=== PATIENT | female | born 1945 | race Caucasian/White ===

== ENCOUNTER 2021-09-14 11:50 | Inpatient (IN) | payer OTHER, MEDICARE ==
[~2021-09-14] VITALS: Ht 152.4 cm; Wt 83.9 kg
[2021-09-14 12:30] LABS: BASOPHILS ABSOLUTE AUTO 0.05 K/mm3 (0.00-0.23); BASOPHILS PERCENT AUTO 0 % (0-2); EOSINOPHILS ABSOLUTE AUTO 0.06 K/mm3 (0.00-0.68); EOSINOPHILS PERCENT AUTO 0 % (0-6); Hematocrit 36.8 % (33.0-51.0); Hemoglobin 11.3 g/dL (11.5-16.0); IMMATURE GRAN ABSOLUTE AUTO 0.22 K/mm3 (0.00-0.10); IMMATURE GRAN PERCENT AUTO 1 % (0-1); LYMPHOCYTES ABSOLUTE AUTO 1.58 K/mm3 (0.84-5.20); LYMPHOCYTES PERCENT AUTO 10 % (21-46); MONOCYTES ABSOLUTE AUTO 0.64 K/mm3 (0.16-1.47); MONOCYTES PERCENT AUTO 4 % (4-13); Mean Corpuscular HGB 28.2 pg (26.0-34.0); Mean Corpuscular HGB Conc 30.7 g/dL (31.5-36.5); Mean Corpuscular Volume 92 fL (80-100); Mean Platelet Volume 9.2 fL (9.1-12.4); NEUTROPHILS ABSOLUTE AUTO 12.84 K/mm3 (1.96-9.15); NEUTROPHILS PERCENT AUTO 83 % (41-73); Platelet Count 261 K/mm3 (150-400); RDW Coefficient Variation 14.7 % (11.7-14.2); RDW Standard Deviation 49.4 fL (35.1-46.3); Red Blood Cell Count 4.01 M/mm3 (3.80-5.20); White Blood Cell Count 15.39 K/mm3 (4.00-11.30)
[2021-09-14 12:46] LABS: Alanine Aminotransfer (ALT/SGP 51 U/L (12-78); Albumin, Blood 2.8 g/dL (3.4-5.0); Albumin/Globulin Ratio 0.8 (0.8-1.8); Alk Phos 111 U/L (50-136); Anion Gap 12 mmol/L (6-16); Aspartate Aminotrans (AST/SGOT 52 U/L (12-37); Beta HCG, Quantitative, Serum 3 mIU/mL (0-3); Bilirubin, Total 0.3 mg/dL (0.1-1.0); Blood Urea Nitrogen 17 mg/dL (8-24); Bun/Creatinine Ratio 13.8 (12.0-20.0); CO2, Blood 18 mmol/L (21-32); Calcium, Blood 9.2 mg/dL (8.5-10.1); Chloride, Blood 112 mmol/L (98-108); Creatinine, Blood 1.23 mg/dL (0.40-1.00); Ethanol (Alcohol), Blood, Med <3 mg/dL; Globulin, Blood 3.4 g/dL (2.2-4.0); Glomerular Filtration Rate 43 (60-); Glucose, Blood 176 mg/dL (70-99); Potassium, Blood 3.3 mmol/L (3.5-5.5); Sodium, Blood 142 mmol/L (136-145); Total Protein, Blood 6.2 g/dL (6.4-8.2)
[2021-09-14 12:54] LABS: International Normalized Ratio 2.37; Prothrombin Time Results 23.5 Sec (9.7-11.5)
[2021-09-14 13:28] LABS: Source, Urine Catheter
[2021-09-14 14:00] LABS: Bilirubin, Urine Neg (Neg); Blood, Urine 4+ (Neg); Glucose Qualitative, Urine Neg (Neg); Ketones, Urine Neg (Neg); Leukocyte Esterase, Urine 2+ (Neg); Nitrite, Urine Neg (Neg); Protein, Urine Neg (Neg); Urobilinogen, Urine NORM (Normal)
[2021-09-14 15:04] LABS: Appearance, Urine Clear (Clear); Color, Urine Pale Yellow (P-Yellow)
[2021-09-14 15:06] LABS: Amorphous Light (0-Heavy); Bacteria Mod /hpf; Squamous Epithelial Cells Few /hpf (Few)
[2021-09-14 15:07] LABS: RBC Cast 0-2 /lpf (0); WBC Cast 0-2 /lpf (0)
[2021-09-14 15:15] LABS: Influenza A, PCR NEGATIVE (NEGATIVE); Influenza B, PCR NEGATIVE (NEGATIVE); Resp Syncytial Virus, PCR NEGATIVE (NEGATIVE); SARS-Cov-2 (COVID-19) PCR, MMC NEGATIVE (NEGATIVE)
[2021-09-14] MEDS ORDERED: Coq-1030 MG PO (15:30)
[2021-09-14] MEDS ORDERED: HYDCOR10 PO (15:30)
[2021-09-14] MEDS ORDERED: FOLIC ACID PO (15:32)
[2021-09-14] MEDS ORDERED: HYDMOR2 PO (15:33)
[2021-09-14] MEDS ORDERED: LIOT5 PO (15:34)
[2021-09-14] MEDS ORDERED: LOSA50 PO (15:35)
[2021-09-14] MEDS ORDERED: LEVSOD25 PO (15:35)
[2021-09-14] MEDS ORDERED: PSYLLIUM FIBER0.4 GM PO (15:36)
[2021-09-14] MEDS ORDERED: L-Lysine500 M1 PO (15:36)
[2021-09-14] MEDS ORDERED: Hytrin2 MG PO (15:37)
[2021-09-14] MEDS ORDERED: B-121000 MC3 PO (15:38)
[2021-09-14] MEDS ORDERED: VERA120 PO (15:38)
[2021-09-14] MEDS ORDERED: VITAMIN D325 MC3 PO (15:39)
[2021-09-14] MEDS ORDERED: WARF2.5 PO (15:40)
[2021-09-14] MEDS ORDERED: WARF5 PO (15:41)
[2021-09-14] MEDS ORDERED: ALBU90OI INH (15:41)
[2021-09-14] MEDS ORDERED: ONDA4ODT MM (15:42)
[2021-09-14] MEDS ORDERED: ESTRADIOL42.5 GM VAG (15:43)
--- NOTE | 2021-09-14 15:55 | NUR ---
APPROX 1340: REQUESTED STANDBY FOR CON SEDATION. PT WAS ON 4LPM PRIOR TO START OF PROCEDURE. SPO2 @ 98%. PT STATED NO SIGNIFICANT RESP HISTORY TO THIS RT. DURING PROCEDURE- PT DESAT AND O2 WAS INCREASED UP TO 12LPM NC AND THEN PLACED ON NRB AT 15LPM TO MAINTAIN SATS > 92% AND SATS REMAINED 100% FOR MOST OF PROCEDURE. POST PROCEDURE- OXYGEN WAS WEANED BACK TO 4LPM WHILE RECOVERING PHASE AND PT AWAKENING. RN AT BEDSIDE T/O. RT EXCUSED TO NURSING CARE. PT IN NO RESP DISTRESS.
[2021-09-14 16:55] LABS: U Amphetamine Screen Not Detected; U Barbituate Screen Not Detected; U Benzodiazapine Screen Not Detected; U Buprenorphine Screen Not Detected; U Cannabinoids Screen Not Detected; U Cocaine Screen Not Detected; U Methadone Screen Not Detected; U Methamphetamine Screen Not Detected; U Opiates Screen Not Detected; U Oxycodone Screen Not Detected; U Phencyclidine Screen Not Detected; U Propoxyphene Screen Not Detected
--- NOTE | 2021-09-15 03:39 | NUR ---
SHIFT SUMMARY PT ARRIVED BACK TO THE FLOOR AT APPROX 2145 FROM I&D OF L ANKLE. MAYTE WRAP IN PLACE, C/D/I. VSS. BEEN RESTING COMFORTABLY THROUGHOUT THE NIGHT. NO N/V. BEEN TREATED FOR PAIN PER EMAR. CRENSHAW IN PLACE, DRAINING CLEAR YELLOW URINE. WILL REPORT TO ONCOMING RN.
[2021-09-15 03:57] LABS: BASOPHILS ABSOLUTE AUTO 0.02 K/mm3 (0.00-0.23); BASOPHILS PERCENT AUTO 0 % (0-2); EOSINOPHILS PERCENT AUTO 0 % (0-6); Hematocrit 29.8 % (33.0-51.0); Hemoglobin 9.6 g/dL (11.5-16.0); IMMATURE GRAN ABSOLUTE AUTO 0.07 K/mm3 (0.00-0.10); IMMATURE GRAN PERCENT AUTO 1 % (0-1); LYMPHOCYTES ABSOLUTE AUTO 0.38 K/mm3 (0.84-5.20); LYMPHOCYTES PERCENT AUTO 3 % (21-46); MONOCYTES ABSOLUTE AUTO 0.52 K/mm3 (0.16-1.47); MONOCYTES PERCENT AUTO 4 % (4-13); Mean Corpuscular HGB 28.8 pg (26.0-34.0); Mean Corpuscular HGB Conc 32.2 g/dL (31.5-36.5); Mean Corpuscular Volume 90 fL (80-100); Mean Platelet Volume 8.9 fL (9.1-12.4); NEUTROPHILS ABSOLUTE AUTO 13.63 K/mm3 (1.96-9.15); NEUTROPHILS PERCENT AUTO 93 % (41-73); Platelet Count 211 K/mm3 (150-400); RDW Coefficient Variation 14.6 % (11.7-14.2); RDW Standard Deviation 47.9 fL (35.1-46.3); Red Blood Cell Count 3.33 M/mm3 (3.80-5.20); White Blood Cell Count 14.62 K/mm3 (4.00-11.30)
[2021-09-15 04:10] LABS: International Normalized Ratio 2.65; Prothrombin Time Results 26.1 Sec (9.7-11.5)
[2021-09-15 04:14] LABS: Albumin, Blood 2.5 g/dL (3.4-5.0); Albumin/Globulin Ratio 0.8 (0.8-1.8); Bilirubin, Total 0.4 mg/dL (0.1-1.0); Bun/Creatinine Ratio 16.5 (12.0-20.0); Calcium, Blood 8.4 mg/dL (8.5-10.1); Creatinine, Blood 1.15 mg/dL (0.40-1.00); Globulin, Blood 3.1 g/dL (2.2-4.0); Magnesium, Blood 1.8 mg/dL (1.6-2.4); Potassium, Blood 4.1 mmol/L (3.5-5.5); Total Protein, Blood 5.6 g/dL (6.4-8.2)
[2021-09-15] MEDS ORDERED: TOPI25 PO (22:00)
[2021-09-15] MEDS ORDERED: LIOT5 PO (22:04)
--- NOTE | 2021-09-16 03:56 | NUR ---
SHIFT SUMMARY POD1 I&D OF L ANKLE, MAYTE WRAP IN PLACE, C/D/I. VSS, 3L NC. PAIN BEING MANAGED PER EMAR WITH 0.5MG IV DILAUDID Q2H. BEDREST AT THIS TIME. TOLERATING PO INTAKE. CRENSHAW DRAINING TO GRAVITY, CLEAR YELLOW URINE. WILL REPORT TO ONCOMING RN.
[2021-09-16 05:11] LABS: BASOPHILS ABSOLUTE AUTO 0.01 K/mm3 (0.00-0.23); BASOPHILS PERCENT AUTO 0 % (0-2); EOSINOPHILS ABSOLUTE AUTO 0.01 K/mm3 (0.00-0.68); EOSINOPHILS PERCENT AUTO 0 % (0-6); Hemoglobin 8.1 g/dL (11.5-16.0); IMMATURE GRAN ABSOLUTE AUTO 0.11 K/mm3 (0.00-0.10); IMMATURE GRAN PERCENT AUTO 1 % (0-1); LYMPHOCYTES ABSOLUTE AUTO 1.05 K/mm3 (0.84-5.20); LYMPHOCYTES PERCENT AUTO 8 % (21-46); MONOCYTES ABSOLUTE AUTO 1.25 K/mm3 (0.16-1.47); MONOCYTES PERCENT AUTO 10 % (4-13); Mean Corpuscular HGB 29.1 pg (26.0-34.0); Mean Corpuscular HGB Conc 32.4 g/dL (31.5-36.5); Mean Corpuscular Volume 90 fL (80-100); Mean Platelet Volume 9.6 fL (9.1-12.4); NEUTROPHILS ABSOLUTE AUTO 10.55 K/mm3 (1.96-9.15); NEUTROPHILS PERCENT AUTO 81 % (41-73); Platelet Count 206 K/mm3 (150-400); RDW Coefficient Variation 14.7 % (11.7-14.2); RDW Standard Deviation 48.1 fL (35.1-46.3); Red Blood Cell Count 2.78 M/mm3 (3.80-5.20); White Blood Cell Count 12.98 K/mm3 (4.00-11.30)
[2021-09-16 05:58] LABS: Albumin, Blood 2.2 g/dL (3.4-5.0); Anion Gap 8 mmol/L (6-16); Blood Urea Nitrogen 21 mg/dL (8-24); Bun/Creatinine Ratio 18.1 (12.0-20.0); CO2, Blood 21 mmol/L (21-32); Calcium, Blood 7.8 mg/dL (8.5-10.1); Chloride, Blood 113 mmol/L (98-108); Creatinine, Blood 1.16 mg/dL (0.40-1.00); Glomerular Filtration Rate 45 (60-); Glucose, Blood 87 mg/dL (70-99); Phosphorus, Blood 2.2 mg/dL (2.5-4.9); Potassium, Blood 3.3 mmol/L (3.5-5.5); Sodium, Blood 142 mmol/L (136-145)
[2021-09-16 08:36] LABS: Hematocrit 26.1 % (33.0-51.0); Hemoglobin 8.4 g/dL (11.5-16.0)
[2021-09-16 08:49] LABS: International Normalized Ratio 1.8; Prothrombin Time Results 18.2 Sec (9.7-11.5)
[2021-09-16 16:11] LABS: Hematocrit 25.8 % (33.0-51.0); Hemoglobin 8.3 g/dL (11.5-16.0)
--- NOTE | 2021-09-16 18:21 | NUR ---
Heparin gtt started as per order. Instructed, per Dr. Serrano to stop Heparin gtt 09/17 at 0600 a.m. , pharmacy notified.
[2021-09-17 00:24] LABS: Hematocrit 25.8 % (33.0-51.0); Hemoglobin 8.4 g/dL (11.5-16.0)
[2021-09-17 05:02] LABS: BASOPHILS ABSOLUTE AUTO 0.02 K/mm3 (0.00-0.23); BASOPHILS PERCENT AUTO 0 % (0-2); EOSINOPHILS ABSOLUTE AUTO 0.06 K/mm3 (0.00-0.68); EOSINOPHILS PERCENT AUTO 1 % (0-6); Hematocrit 24.4 % (33.0-51.0); Hemoglobin 7.8 g/dL (11.5-16.0); IMMATURE GRAN ABSOLUTE AUTO 0.11 K/mm3 (0.00-0.10); IMMATURE GRAN PERCENT AUTO 1 % (0-1); LYMPHOCYTES PERCENT AUTO 10 % (21-46); MONOCYTES ABSOLUTE AUTO 1.06 K/mm3 (0.16-1.47); MONOCYTES PERCENT AUTO 9 % (4-13); Mean Corpuscular HGB 28.8 pg (26.0-34.0); Mean Corpuscular Volume 90 fL (80-100); Mean Platelet Volume 9.3 fL (9.1-12.4); NEUTROPHILS ABSOLUTE AUTO 9.22 K/mm3 (1.96-9.15); NEUTROPHILS PERCENT AUTO 80 % (41-73); Platelet Count 178 K/mm3 (150-400); RDW Coefficient Variation 14.8 % (11.7-14.2); RDW Standard Deviation 48.9 fL (35.1-46.3); Red Blood Cell Count 2.71 M/mm3 (3.80-5.20); White Blood Cell Count 11.57 K/mm3 (4.00-11.30)
[2021-09-17 06:16] LABS: Albumin, Blood 2.1 g/dL (3.4-5.0); Anion Gap 6 mmol/L (6-16); Blood Urea Nitrogen 18 mg/dL (8-24); Bun/Creatinine Ratio 19.8 (12.0-20.0); CO2, Blood 20 mmol/L (21-32); Calcium, Blood 7.2 mg/dL (8.5-10.1); Chloride, Blood 117 mmol/L (98-108); Creatinine, Blood 0.91 mg/dL (0.40-1.00); Glomerular Filtration Rate >60 (60-); Glucose, Blood 105 mg/dL (70-99); Magnesium, Blood 2.1 mg/dL (1.6-2.4); Phosphorus, Blood 2.4 mg/dL (2.5-4.9); Potassium, Blood 3.6 mmol/L (3.5-5.5); Sodium, Blood 143 mmol/L (136-145)
--- NOTE | 2021-09-17 06:21 | NUR ---
HEPARIN DRIP DRIP STOPPED AT 0608 PER RN REPORT FOR SURGERY TODAY, NORMAL SALINE STILL RUNNING
--- NOTE | 2021-09-17 06:54 | NUR ---
SHIFT SUMMARY OR IN THE MORNING, A/O X4, VSS, PAIN MANAGEMENT IMPROVED (SEE EMAR), HEPARIN DRIP STOPPED AT 0608, PT REPORTS INCREASING PAIN IN R WRIST BUT NOT BAD PAIN IN RIBS. NO ACUTE EVENTS THIS SHIFT. CALL LIGHT IN REACH, WILL CTM AND REPORT TO DAY RN.
[2021-09-17 08:52] LABS: Hematocrit 24.3 % (33.0-51.0); Hemoglobin 7.8 g/dL (11.5-16.0)
--- NOTE | 2021-09-17 13:09 | NUR ---
THE PATIENT WAS BROUGHT TO DAY SURGERY FOR HER PROCEDURE, IN HER BED.
[2021-09-17 18:10] LABS: Hematocrit 20.8 % (33.0-51.0); Hemoglobin 6.7 g/dL (11.5-16.0)
--- NOTE | 2021-09-17 18:33 | NUR ---
SHIFT SUMMARY S/P ORIF L ANKLE, SPLINT, TOES WARM, CAP REFILL WNL. PT HAS BEEN SLEEPING COMFORTABLY SINCE RETURN FROM PACU. BIOX ON, VSS WNL, 4LNC. CRENSHAW PATENT & DRAINING YELLOW URINE, STAT LOCK ON, OFF FLOOR. DAUGHTER AT BEDSIDE. WILL REPORT TO ONCOMING NOC RN.
[2021-09-17 20:54] LABS: Hematocrit 21.9 % (33.0-51.0)
[2021-09-18 05:54] LABS: Hemoglobin 7.5 g/dL (11.5-16.0)
[2021-09-18 06:40] LABS: Albumin, Blood 1.8 g/dL (3.4-5.0); Anion Gap 8 mmol/L (6-16); Blood Urea Nitrogen 18 mg/dL (8-24); Bun/Creatinine Ratio 18.1 (12.0-20.0); CO2, Blood 21 mmol/L (21-32); Calcium, Blood 7.2 mg/dL (8.5-10.1); Chloride, Blood 113 mmol/L (98-108); Glomerular Filtration Rate 54 (60-); Glucose, Blood 139 mg/dL (70-99); Phosphorus, Blood 2.3 mg/dL (2.5-4.9); Sodium, Blood 142 mmol/L (136-145)
--- NOTE | 2021-09-18 07:28 | NUR ---
SHIFT SUMMARY POD1 L ANKLE ORIF, A/O X4, VSS, TOLERATING PO, PAIN MANAGED PER EMAR, NON AMBULATORY PER ORDER, 1 UNIT PRBC TRANSFUSSED THOUGH HGB ONLY UP TO 7.5 AT MORNING LABS. DISCUSSED HEPARIN DRIP c NETO RN TO DISCUSS c DR RAE. NO ACUTE EVENTS THIS SHIFT. CALL LIGHT IN REACH, REPORT GIVEN TO NETO RN.
[2021-09-18 14:08] LABS: Hematocrit 23.6 % (33.0-51.0); Hemoglobin 7.6 g/dL (11.5-16.0)
--- NOTE | 2021-09-18 14:10 | NUR ---
ELEVATED HR PT'S HR ELEVATED TO 170-180. PT REPORTED INCREASED L SIDE/BACK PAIN AFTER REPOSITIONING AND HR APPEARS TO HAVE INCREASED A RESPONSE TO PAIN. PT'S CHART REVIEWED AND SHE HAD NOT HAD VERAPAMIL R/T BEING NPO PREVIOUSLY. DR. JOYCE CALLED AND ORDERED DOSE OF VERAPAMIL PO. PAIN DECREASED SO DID PT'S HR.
[2021-09-18] MEDS ORDERED: THYROID PO (16:36)
[2021-09-18] MEDS ORDERED: [UNRECOGNIZED DRUG - OTHER] PO (16:41)
--- NOTE | 2021-09-18 17:33 | NUR ---
REPOSITIONING OFFERED PT REPORTED PAIN MEDICATION GIVEN AT 1625 WAS WAS NOT ADEQUATE AND SHE STATED NOT ABLE TO TOLERATE REPOSITIONING.
[2021-09-18 17:56] LABS: Hematocrit 21.1 % (33.0-51.0); Hemoglobin 6.9 g/dL (11.5-16.0)
--- NOTE | 2021-09-18 18:00 | NUR ---
REDNESS/SWELLING TO LFA PT REPORTED INCREASED REDNESS AND SWELLING TO LFA NEAR IV SITE. IV WAS ASSESSED, ABLE TO FLUSH WITHOUT INCREASED SWELLING, GOOD BLOOD RETURN. REDNESS AND SWELLING APPEARS TO BE R/T PREVIOUS IV/LAB DRAW SITES. REDNESS OUTLINED. DR. JOYCE NOTIFIED.
--- NOTE | 2021-09-18 19:54 | NUR ---
REPOSITIONING PT WAS OFFERED REPOSITIONING, SHE REPORTED SHE DID NOT FEEL THAT SHE COULD TOLERATE POSITIONING ONTO ONE OF HER SIDES. PT EDUCATED ABOUT RISK FOR SKIN BREAKDOWN.
--- NOTE | 2021-09-18 20:03 | NUR ---
LOW H&H NOC HOSPITALIST JOHNNY, NOTIFIED OF DECREASED H&H FROM PREVIOUS DRAW. HE WAS NOTIFIED THAT HEPARIN DRIP STARTED PRIOR TO LAB DRAW. NO VISIBLE SIGNS OF BLEEDING. 1 UNIT PRBC ORDERED. KRYSTINA RN UPDATED REGARDING PHONE CALL.
--- NOTE | 2021-09-18 20:08 | NUR ---
PT'S HOME MEDICATION LIST REQUIRED UPDATING MANY OF HE HOME MEDICATIONS HAD NOT BEEN ORDERED. DR. JOYCE RESTARTED HOME MEDICATIONS AND SAID OK FOR PT TO USE MEDS FROM HOME INSTEAD OF HOSPITAL MEDICATIONS IF SHE PREFERS.
--- NOTE | 2021-09-18 20:09 | NUR ---
SHIFT SUMMARY PAIN HAS BEEN DIFFICULT TO MANAGED WITH PO AND IV PAIN MEDICATION. PT STATES PAIN IS TOLERABLE AT REST BUT HAS DECLINED REPOSITIONING R/T ELEVATED PAIN WITH MOVEMENT. MANY OF PT'S HOME MEDICATIONS RESTARTED TODAY. HEPARIN DRIP RESTARTED. PT/OT ORDER PLACED TODAY PER DR. JOYCE. PT HAD ELEVATED HR OF 170-180 TODAY, PT'S HR IS NOW NSR AT 88 PER SKID WRAPPER SINCE VERAPAMIL WAS RESTARTED. REPORT GIVEN TO KRYSTINA STEWART.
--- NOTE | 2021-09-19 05:25 | NUR ---
PT IS ALERT AND ORIENTED X4, PAIN TREATED PER EMAR THIS SHIFT. PT DID ALLOW US TO REPOSITION HER TWICE ALONG WITH BOOSTS, OTHER THAN THAT SHE REFUSED. PT GUARDS HER L RIB CAGE AND AND STATES HER L FOOT IS 10/10 PAIN PRIOR TO MEDICATION. L FOOT/LEG DRESSING CDI. PT GAVE THIS COMMERCIAL LOAN COLLECTION OFFICER A COPY OF HER POLST WHICH INDICATES SHE WOULD LIKE TO BE PLACED ON A LIMITED CODE. POLST PLACED IN FRONT OF BONDER AND DAY NURSE WILL BE INFORMED. PT RECEIVED 1U PRBC'S, TOLERATED WELL. FC DRAINING TO GRAVITY. NO OTHER CHANGES THROUGH SHIFT. STAFF WILL CONT TO MONITOR.
[2021-09-19 06:14] LABS: Hematocrit 22.4 % (33.0-51.0); Hemoglobin 7.3 g/dL (11.5-16.0)
[2021-09-19 09:12] LABS: BASOPHILS ABSOLUTE AUTO 0.01 K/mm3 (0.00-0.23); BASOPHILS PERCENT AUTO 0 % (0-2); EOSINOPHILS ABSOLUTE AUTO 0.02 K/mm3 (0.00-0.68); EOSINOPHILS PERCENT AUTO 0 % (0-6); Hematocrit 23.7 % (33.0-51.0); Hemoglobin 7.9 g/dL (11.5-16.0); IMMATURE GRAN PERCENT AUTO 2 % (0-1); LYMPHOCYTES PERCENT AUTO 8 % (21-46); MONOCYTES ABSOLUTE AUTO 0.91 K/mm3 (0.16-1.47); MONOCYTES PERCENT AUTO 8 % (4-13); Mean Corpuscular HGB 28.9 pg (26.0-34.0); Mean Corpuscular HGB Conc 33.3 g/dL (31.5-36.5); Mean Corpuscular Volume 87 fL (80-100); Mean Platelet Volume 9.5 fL (9.1-12.4); NEUTROPHILS ABSOLUTE AUTO 10.01 K/mm3 (1.96-9.15); NEUTROPHILS PERCENT AUTO 82 % (41-73); Platelet Count 217 K/mm3 (150-400); RDW Standard Deviation 47.8 fL (35.1-46.3); Red Blood Cell Count 2.73 M/mm3 (3.80-5.20); White Blood Cell Count 12.15 K/mm3 (4.00-11.30)
[2021-09-19 13:41] LABS: Platelet Count 225 K/mm3 (150-400)
[2021-09-19 13:51] LABS: Hematocrit 23.1 % (33.0-51.0); Hemoglobin 7.7 g/dL (11.5-16.0)
--- NOTE | 2021-09-19 14:43 | NUR ---
PT TO RESTART COUMADIN PER HOME DOSING. PHARMACY CONSULT ORDERED. STAT INR ORDERED.
[2021-09-19 15:14] LABS: International Normalized Ratio 1.13; Prothrombin Time Results 11.8 Sec (9.7-11.5)
--- NOTE | 2021-09-19 18:45 | NUR ---
PT HAS BEEN STABLE THIS SHIFT. PT CONT TO HAVE HIGH RATED PAIN. MANAGED WITH PO/IV DILAUDID. PT REFUSES TO TURN IN BED. ENCOURAGING TCDB AND SPIROMETRY. PT ABLE TO SIT UP BRIEFLY X2 WITH THERAPY. CONT IV FLUIDS AND HEPARIN GGT. PHARMACY MANAGING HEPARIN AND COUMADIN WHICH WAS RESTARTED THIS EVENING. TELE, NSR. PT ON 4L O2. CPAP AT SLEEP. POLST ON CHART PT DESIRES DR TO CHANGE HER TO DNI STATUS. TOLERATING DIET WELL. CRENSHAW DRAINING. SPLINT TO LEFT LEG CDI. PLAN FOR SNF PLACEMENT WHEN READY.
[2021-09-20 04:59] LABS: BASOPHILS ABSOLUTE AUTO 0.02 K/mm3 (0.00-0.23); BASOPHILS PERCENT AUTO 0 % (0-2); EOSINOPHILS ABSOLUTE AUTO 0.08 K/mm3 (0.00-0.68); EOSINOPHILS PERCENT AUTO 1 % (0-6); Hematocrit 21.3 % (33.0-51.0); IMMATURE GRAN ABSOLUTE AUTO 0.25 K/mm3 (0.00-0.10); IMMATURE GRAN PERCENT AUTO 2 % (0-1); LYMPHOCYTES ABSOLUTE AUTO 1.16 K/mm3 (0.84-5.20); LYMPHOCYTES PERCENT AUTO 11 % (21-46); MONOCYTES ABSOLUTE AUTO 0.93 K/mm3 (0.16-1.47); MONOCYTES PERCENT AUTO 9 % (4-13); Mean Corpuscular HGB 29.3 pg (26.0-34.0); Mean Corpuscular HGB Conc 32.9 g/dL (31.5-36.5); Mean Corpuscular Volume 89 fL (80-100); Mean Platelet Volume 9.2 fL (9.1-12.4); NEUTROPHILS ABSOLUTE AUTO 7.97 K/mm3 (1.96-9.15); NEUTROPHILS PERCENT AUTO 77 % (41-73); Platelet Count 233 K/mm3 (150-400); RDW Coefficient Variation 15.1 % (11.7-14.2); RDW Standard Deviation 48.3 fL (35.1-46.3); Red Blood Cell Count 2.39 M/mm3 (3.80-5.20); White Blood Cell Count 10.41 K/mm3 (4.00-11.30)
[2021-09-20 05:10] LABS: International Normalized Ratio 1.1; Prothrombin Time Results 11.5 Sec (9.7-11.5)
[2021-09-20 06:12] LABS: Anion Gap 7 mmol/L (6-16); Blood Urea Nitrogen 19 mg/dL (8-24); Bun/Creatinine Ratio 22.2 (12.0-20.0); CO2, Blood 22 mmol/L (21-32); Calcium, Blood 7.6 mg/dL (8.5-10.1); Chloride, Blood 116 mmol/L (98-108); Creatinine, Blood 0.85 mg/dL (0.40-1.00); Glomerular Filtration Rate >60 (60-); Glucose, Blood 91 mg/dL (70-99); Potassium, Blood 3.6 mmol/L (3.5-5.5); Sodium, Blood 145 mmol/L (136-145)
--- NOTE | 2021-09-20 06:35 | NUR ---
POD 3 S/P LEFT ANKLE ORIF. PT VSS, HR SINUS 80'S PER TELE MONITOR. HEPARIN GTT CONT, RATE ADJUSTED X1 PER PHARMACY. O2 TITRATED TO 2LNC, CPAP ON WHEN SLEEPING W/O2 BLEED IN. PT USING I/S, HAS LOOSE COUGH. PT SPLINT TO LLE INTACT, CAP REFILL WNL, PT DENIED CHANGES IN SENSATION. PAIN MGD PER EMAR. PT ONLY ALLOWING MINIMAL REPOSITIONING. PT USING CALL LIGHT FOR ASSITANCE. PLAN TO MOBILIZE W/PT
--- NOTE | 2021-09-20 18:08 | NUR ---
SHIFT SUMMARY PT A&OX4, VSS/2LNC, POD3 L ORIF ANKLE/SPLINT, NWB, BINDER ON. PAIN MANAGED WITH IV AND PO DILAUDID. FLOYD PO. VOIDING. HEAVY STAND TRANSFER CHAIR/BSC/BED. WILL REPORT TO ONCOMING NOC RN.
[2021-09-20 18:20] LABS: Hematocrit 25.4 % (33.0-51.0); Hemoglobin 8.3 g/dL (11.5-16.0)
--- NOTE | 2021-09-20 22:45 | NUR ---
BLEEDING AFTER USING BEDSIDE COMODE PT EXPERIENCED BLEEDING FROM RECTUM AREA AFTER USING BEDSIDE COMODE, PT STATES HX OF HEMROIDS, PT ASSESSED AND BLEEDING APPEARED TO SUBSIDE QUICKLY. 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 DENIED PAIN OR DISCOMFORT. REPORTED URINATION "FELT NORMAL".
[2021-09-21 04:28] LABS: BASOPHILS ABSOLUTE AUTO 0.02 K/mm3 (0.00-0.23); BASOPHILS PERCENT AUTO 0 % (0-2); EOSINOPHILS ABSOLUTE AUTO 0.23 K/mm3 (0.00-0.68); EOSINOPHILS PERCENT AUTO 2 % (0-6); Hematocrit 22.8 % (33.0-51.0); Hemoglobin 7.5 g/dL (11.5-16.0); IMMATURE GRAN ABSOLUTE AUTO 0.56 K/mm3 (0.00-0.10); IMMATURE GRAN PERCENT AUTO 4 % (0-1); LYMPHOCYTES PERCENT AUTO 16 % (21-46); MONOCYTES ABSOLUTE AUTO 1.07 K/mm3 (0.16-1.47); MONOCYTES PERCENT AUTO 8 % (4-13); Mean Corpuscular HGB 29.4 pg (26.0-34.0); Mean Corpuscular HGB Conc 32.9 g/dL (31.5-36.5); Mean Corpuscular Volume 89 fL (80-100); NEUTROPHILS ABSOLUTE AUTO 9.33 K/mm3 (1.96-9.15); NEUTROPHILS PERCENT AUTO 70 % (41-73); NRBC ABSOLUTE 0.03 K/mm3 (0.00-0.02); NRBC Auto 0.2 /100 WBC (0.0-0.2); Platelet Count 259 K/mm3 (150-400); RDW Coefficient Variation 15.3 % (11.7-14.2); RDW Standard Deviation 49.1 fL (35.1-46.3); Red Blood Cell Count 2.55 M/mm3 (3.80-5.20); White Blood Cell Count 13.31 K/mm3 (4.00-11.30)
[2021-09-21 04:48] LABS: Anti-Xa UFH, PHA Monitoring 0.54 IU/mL; International Normalized Ratio 1.1; Prothrombin Time Results 11.5 Sec (9.7-11.5)
--- NOTE | 2021-09-21 05:17 | NUR ---
PT BLEEDING, DOC CONTACTED DR. MARTE CONTACTED AFTER INCREASED BLOOD W/ URINATION. ORDERED TO REPEAT H&H, STOP HEP DRIP, AND REPORT TO AM DOC.
[2021-09-21 05:33] LABS: Bun/Creatinine Ratio 16.5 (12.0-20.0); Calcium, Blood 7.9 mg/dL (8.5-10.1); Creatinine, Blood 1.09 mg/dL (0.40-1.00); Potassium, Blood 3.2 mmol/L (3.5-5.5)
--- NOTE | 2021-09-21 05:34 | NUR ---
SHIFT SUMMARY PT A&O X4 AND IN PLEASENT MOOD T/O SHIFT. POD 4 ORIF LLE. PT BLEEDING INTO BEDSIDE COMODE DURING SHIFT, SEE NOTE. PT RESTED COMFORTABLY IN CHAIR T/O NIGHT. TOLERATING PO INTAKE AND VOIDING WELL. BINDERS IN PLACE FOR COMFORT FROM MULT. RIB FX. SLING & MAYTE TO LLE, ELEVATED ON PILLOW FOR COMFORT. CALL LIGHT W/IN REACH.
[2021-09-21 09:30] LABS: Hematocrit 22.9 % (33.0-51.0); Hemoglobin 7.4 g/dL (11.5-16.0)
--- NOTE | 2021-09-21 10:04 | NUR ---
09/21/21 1004 Renee Ham VERIFICATIONS: EDIT CHART.
--- NOTE | 2021-09-21 17:51 | NUR ---
SHIFT SUMMARY PT A&OX4, VSS, LLE POD4 ORIF SPLINT NWB, DRESSINGS CHANGED ON RLE/RKNEE LACS. PAIN MANAGED WITH DILAUDID 2 MG PO AND 1 MG IV. FLOYD PO. VOIDING WELL/YELLOW URINE, BM TODAY - NO BLOOD THIS AFTERNOON. HEAVY STAND SWITCH CHAIR TRANSFER. WILL REPORT TO ONCOMING NOC TERRY.
[2021-09-21 18:10] LABS: Hematocrit 26.1 % (33.0-51.0); Hemoglobin 8.4 g/dL (11.5-16.0)
--- NOTE | 2021-09-22 05:00 | NUR ---
ALERT AND ORIENTED X'S 4. MEDICATED WITH DILAUDID PO HS FOR PAIN MANAGEMENT, EFFECTIVE RELIEF. CPAP IN PLACE. SLEPT WELL THROUGH NIGHT. 2 ASISST FOR TRANSFERS, NWB TO LLE, DRESSINGS CLEAN DRY AND INTACT. SAFETY MAINTAINED, CALL LEACH IN REACH.
--- NOTE | 2021-09-22 06:26 | NUR ---
WHEN PREFORMING [facility], BLOOD SHOWED ON THE WIPES. RN ALERTED.
[2021-09-22 06:40] LABS: Anti-Xa UFH, PHA Monitoring 0.56 IU/mL; International Normalized Ratio 1.24; Prothrombin Time Results 12.8 Sec (9.7-11.5)
--- NOTE | 2021-09-22 12:32 | NUR ---
BRB PER VAGINA NOTED BRIGHT RED BLOOD IN PULL UPS AND COMMODE. 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 DR JOYCE AWARE.
--- NOTE | 2021-09-22 14:45 | NUR ---
BRB PER VAGINA BRB PER VAGINA WITH ALL VOIDS THIS SHIFT. NOTIFIED DR JOYCE. ORDERS OBTAINED TO DC HEPARIN DRIP AND CHECK H&H AT 1600. ORDERS ENTERED IN CHART. HEPARIN INFUSION STOPPED AT THIS TIME.
--- NOTE | 2021-09-22 15:04 | NUR ---
SHIFT SUMMARY PATIENT ALERT AND ORIENTED THROUGHOUT SHIFT. TOLERATING REGULAR DIET AND FLUIDS. HEPARIN DRIP RUNNING AND 1 DOSE OF ABX DURING AM. PAIN CONTROLLED WITH PO DILAUDID Q4 WITH IV PRN FOR BREAKTHROUGH. LEFT ANKLE IN SPLINT AND MYATE WRAP. RIGHT [place] WITH LAC, SUTURES, AND DRESSING. BRUISING THROUGHOUT. SHALLOW BREATHING, SUPP O2 VIA NC AT 2L. USING CPAP AT NIGHT WITH 2L O2. ENC IS, TCDB. 2 PERSON MX ASSIST TO PIVOT TO COMMODE AND CHAIR. BRB PER VAGINA WITH EACH VOID. DR JOYCE NOTIFIED. HEPARIN DRIP STOPPED AT 1430, H&H TO BE CHECKED AT 1600. BOTH ORDERS PLACED IN CHART. REPORT GIVEN TO RN ASSUMING CARE.
[2021-09-22 16:12] LABS: Hematocrit 23.8 % (33.0-51.0); Hemoglobin 7.6 g/dL (11.5-16.0)
[2021-09-23 06:35] LABS: BASOPHILS ABSOLUTE AUTO 0.01 K/mm3 (0.00-0.23); BASOPHILS PERCENT AUTO 0 % (0-2); EOSINOPHILS ABSOLUTE AUTO 0.21 K/mm3 (0.00-0.68); EOSINOPHILS PERCENT AUTO 2 % (0-6); Hematocrit 23.5 % (33.0-51.0); Hemoglobin 7.3 g/dL (11.5-16.0); IMMATURE GRAN ABSOLUTE AUTO 0.32 K/mm3 (0.00-0.10); IMMATURE GRAN PERCENT AUTO 3 % (0-1); LYMPHOCYTES PERCENT AUTO 16 % (21-46); MONOCYTES ABSOLUTE AUTO 0.96 K/mm3 (0.16-1.47); MONOCYTES PERCENT AUTO 9 % (4-13); Mean Corpuscular HGB 28.3 pg (26.0-34.0); Mean Corpuscular HGB Conc 31.1 g/dL (31.5-36.5); Mean Corpuscular Volume 91 fL (80-100); Mean Platelet Volume 9.2 fL (9.1-12.4); NEUTROPHILS ABSOLUTE AUTO 7.71 K/mm3 (1.96-9.15); NEUTROPHILS PERCENT AUTO 70 % (41-73); Platelet Count 309 K/mm3 (150-400); RDW Coefficient Variation 15.7 % (11.7-14.2); Red Blood Cell Count 2.58 M/mm3 (3.80-5.20); White Blood Cell Count 11.01 K/mm3 (4.00-11.30)
--- NOTE | 2021-09-23 06:39 | NUR ---
ALERT AND ORIENTED X'S 4. DENIED PAIN THROUGH NIGHT, SLEPT WELL THROUGH NIGHT. TOILETED TO BSC, URINE YELLOE WITH ONE TINY BLOD CLOT NOTED. REMAINS 2 ASSIST FOR TRANSFERS. SPLINT INTACT TO LLE, MEDIPORE DRESSING INTACT TO RLE. CPPP IN PLACE, SAFETY MAINTAINED, CALL LEACH IN REACH.
[2021-09-23 06:52] LABS: Anti-Xa UFH, PHA Monitoring <0.10 IU/mL; International Normalized Ratio 1.28; Prothrombin Time Results 13.2 Sec (9.7-11.5)
[2021-09-23 07:38] LABS: Bun/Creatinine Ratio 16.3 (12.0-20.0); Calcium, Blood 7.8 mg/dL (8.5-10.1); Creatinine, Blood 0.98 mg/dL (0.40-1.00)
--- NOTE | 2021-09-23 12:05 | NUR ---
SHIFT ASSESSEMENT SHIFT ASSESSMENT DOCUMENTED BY VIC KHAN STUDENT NURSE REVIEWED AND DOCUMENTATION APPEARS TO BE ACCURATE BASED ON SHIFT ASSESSMENT.
--- NOTE | 2021-09-23 16:42 | NUR ---
SHIFT SUMMARY PT IS ALERT AND ORIENTED. LUNG SOUNDS DIMINISHED AT BASES. 2 DRESSINGS ON RIGHT LEG HAD SCANT DRAINAGE AND WERE CHANGED. THERE WAS NON PITTING EDEMA ON THE RIGHT LEG. PT EXHIBITS SOB WHEN AMBULATING AND IS NWB ON L LEG WITH 2 PERSON ASSIST. THERE WERE SOME SMALL BLOOD CLOTS PRESENT IN THE URINE TODAY. BRUISING ON L AND R UPPER ARM, LOWER ABD, R LEG, AND HIPS. PT STATED SHE HAD PAIN IN R ANKLE, L RIBS, LOWER ABD, AND TAILBONE. PAIN IS MANAGED WITH DILAUDID. PT EXPERIENCES ANXIETY WITH CARE AND STATED THAT IT HELPS WHEN CARE IS EXPLAINED TO HER IT HAPPENS.
--- NOTE | 2021-09-23 18:16 | NUR ---
SHIFT SUMMARY PT REMAINS IN THE HOSPITAL WAITING FOR PLACEMENT AT SNF. PT HAS BEEN OOB WITH 2 PERSON ASSIST THIS SHIFT, SHE IS ABLE TO STAND AND PIVOT TRANSFER. PAIN HAS BEEN MANAGED WITH PO PAIN MEDICATION. PT HAS TRANSITIONED BACK TO TAKING COUMADIN. PT IS STILL HAVING SMALL BLOOD CLOTS IN HER URINE, DR. JOYCE AWARE. RLE LACERATIONS CLEANSED AND DRESSING CHANGED X2 TODAY. VSS. WILL MONITOR UNTIL REPORT TO KRYSTINA STEWART.
[2021-09-23 23:11] LABS: Source, Urine Clean Catch
[2021-09-23 23:14] LABS: Bilirubin, Urine Neg (Neg); Blood, Urine 2+ (Neg); Glucose Qualitative, Urine Neg (Neg); Ketones, Urine Neg (Neg); Leukocyte Esterase, Urine 2+ (Neg); Nitrite, Urine Neg (Neg); Protein, Urine Neg (Neg); Specific Gravity, Urine 1.015 (1.003-1.022); Urobilinogen, Urine NORM (Normal)
[2021-09-23 23:18] LABS: Appearance, Urine Hazy (Clear); Color, Urine Yellow (P-Yellow)
[2021-09-23 23:36] LABS: Bacteria Few /hpf; Red Blood Cells, Urine 0-2 /hpf (0-2); Squamous Epithelial Cells Rare /hpf (Few); White Blood Cells, Urine 25-50 /hpf (0-5)
[2021-09-24 05:23] LABS: International Normalized Ratio 1.49; Prothrombin Time Results 15.2 Sec (9.7-11.5)
--- NOTE | 2021-09-24 06:14 | NUR ---
ALERT X'S 4, SLEPT WELL THROUGH NIGHT. MEDICATED WITH DILAUDID 2MG PO X'S ONE DUE TO GENARALIZED PAIN, EFFECTIVE RELIEF. LLE ELEVATED ON PILLOW, DSG INTACT. RLE DRESSING CLEAN DRY AND INTACT. CPAP ON AND WORKING PROPERLY. 2 ASSIST FOR TRANSFERS TO BSC, VOIDED YELLOW URINE, NO BLOOD NOTED. CURRENTLY RESTING PEACEFULLY IN BED, SAFETY MAINTAINED, CALL LEACH IN REACH.
--- NOTE | 2021-09-24 18:15 | NUR ---
SHIFT SUMMARY PT A/O X4; PLEASANT AND COOPERATIVE WITH CARE. MAYTE WRAP DRESSING TO L LEG CDI. LACERATIONS NOTED T/O THE BODY. UP TO THE CHAIR WITH A 2 ASSIST. MEDICATED FOR PAIN X2 THIS SHIFT. PT ALSO PREFERS TO TAKE HER OWN CORTEF FROM HOME RATHER THAN OURS FROM THE PHARMACY. CHANGED IN EMR. VSS. AWAITING SNF PLACEMENT AND [place] [place] [place] [facility]. WILL REPORT TO NOC RN.
[2021-09-25 04:53] LABS: International Normalized Ratio 1.73; Prothrombin Time Results 17.5 Sec (9.7-11.5)
--- NOTE | 2021-09-25 06:25 | NUR ---
ALERT AND ORIENTED X'S 4. MEDICATED WITH DIALUDID X'S ONE, EFFECTIVE RELIEF, SLEPT WELL THROUGH NIGHT, 2 ASSISIT FOR TRANSFERS TO BSC, VOIDED, URINE CLEAR. NWD TO LLE, SPLINT IN PLACE. DRESSINGS CLEAN DRY AND INTACT TO RLE. FOAM DRESSING INTACT TO GROIN AREA. CPAP ON THROUGH NIGHT, TOLERATED WELL.
--- NOTE | 2021-09-25 18:17 | NUR ---
SHIFT SUMMARY: PATIENT ALERT AND ORIENTED, PLEASANT AFFECT. UP IN CHAIR TODAY WITH ASSIST OF 2 PERSON AND GAIT BELT. NWB ON LLE, MANAGED WELL WITH PIVOTING TO BSC AND CHAIR. MEDICATED TODAY FOR RIB PAIN AND VERBALIZE RELIEF. APPETITE GOOD. BATH GIVEN TODAY.
[2021-09-26 04:06] LABS: Hematocrit 22.5 % (33.0-51.0); Hemoglobin 6.8 g/dL (11.5-16.0); Mean Corpuscular HGB Conc 30.2 g/dL (31.5-36.5); Mean Corpuscular Volume 93 fL (80-100); Platelet Count 311 K/mm3 (150-400); RDW Coefficient Variation 15.4 % (11.7-14.2); RDW Standard Deviation 52.6 fL (35.1-46.3); Red Blood Cell Count 2.43 M/mm3 (3.80-5.20); White Blood Cell Count 8.82 K/mm3 (4.00-11.30)
[2021-09-26 04:24] LABS: International Normalized Ratio 2.09; Prothrombin Time Results 20.9 Sec (9.7-11.5)
[2021-09-26 04:39] LABS: Albumin, Blood 1.9 g/dL (3.4-5.0); Anion Gap 7 mmol/L (6-16); Blood Urea Nitrogen 19 mg/dL (8-24); Bun/Creatinine Ratio 20.3 (12.0-20.0); CO2, Blood 24 mmol/L (21-32); Calcium, Blood 8.1 mg/dL (8.5-10.1); Chloride, Blood 109 mmol/L (98-108); Creatinine, Blood 0.94 mg/dL (0.40-1.00); Glomerular Filtration Rate 58 (60-); Glucose, Blood 94 mg/dL (70-99); Phosphorus, Blood 3.1 mg/dL (2.5-4.9); Potassium, Blood 3.5 mmol/L (3.5-5.5); Sodium, Blood 140 mmol/L (136-145)
--- NOTE | 2021-09-26 06:14 | NUR ---
ALERT AND ORIENTED X'S 4. MEIDCATED WITH DILAUDID FOR PAIN MANAGMENT, EFFECTIVE. 2 ASSIST FOR TRANSFERS, NWB TO LLE, DRESSING INTACT, RLE DRESSINGS INTACT. SOB ON EXERTION, DIMINISHED LUNG SOUNDS. PATIENTS HGB 6.8, NOTIFIED DR. CHAVES, RECEIVED ORDER TO GIVE 1 UNIT OF PRBC'S.
--- NOTE | 2021-09-26 09:06 | NUR ---
PT. TEMP. 101.0 TEMPORAL PRIOR TO GIVING PRBC, [address] BRADFORD CALLED AND NOTIFIED OF TEMP. TELEPHONE ORDER FOR TYLENOL BUT NOT DOCUMENTED DUE TO PATIENT STATING SHE WILL NOT TAKE TYLENOL OR ANY TYPE OF NSAIDS DUE TO HER LIVER AND KIDNEY. MESSAGE LEFT WITH THAT PT. REFUSE TYELENOL. PRBC REMAINS IN BLOOD BANK AT THIS TIME.
[2021-09-26 11:14] LABS: Source, Urine Clean Catch
--- NOTE | 2021-09-26 11:26 | NUR ---
ONE UNIT PRBC'S STARTED AT 1120. PATIENT TEMP. 99.3.
--- NOTE | 2021-09-26 11:35 | NUR ---
TEMP 97.9. VSS. NO S/S REACTION TO PRBC'S. PATIENT UP IN CHAIR AFTER VOID EARLIER , UA SENT TO LAB.
[2021-09-26 11:46] LABS: Appearance, Urine Clear (Clear); Bilirubin, Urine Neg (Neg); Blood, Urine Neg (Neg); Color, Urine Yellow (P-Yellow); Glucose Qualitative, Urine Neg (Neg); Ketones, Urine Neg (Neg); Leukocyte Esterase, Urine 2+ (Neg); Nitrite, Urine Neg (Neg); Protein, Urine Neg (Neg); Urobilinogen, Urine NORM (Normal)
[2021-09-26 11:52] LABS: Red Blood Cells, Urine 0-2 /hpf (0-2); Squamous Epithelial Cells Few /hpf (Few)
[2021-09-26 11:53] LABS: Bacteria Few /hpf; Mucus Light (0-Heavy)
[2021-09-27 04:37] LABS: Hematocrit 26.1 % (33.0-51.0); Hemoglobin 8.3 g/dL (11.5-16.0); Mean Corpuscular HGB Conc 31.8 g/dL (31.5-36.5); Mean Corpuscular Volume 91 fL (80-100); Platelet Count 322 K/mm3 (150-400); RDW Standard Deviation 50.3 fL (35.1-46.3); Red Blood Cell Count 2.86 M/mm3 (3.80-5.20); White Blood Cell Count 10.05 K/mm3 (4.00-11.30)
[2021-09-27 04:51] LABS: Albumin, Blood 1.9 g/dL (3.4-5.0); Anion Gap 6 mmol/L (6-16); Blood Urea Nitrogen 17 mg/dL (8-24); Bun/Creatinine Ratio 16.5 (12.0-20.0); CO2, Blood 25 mmol/L (21-32); Calcium, Blood 8.6 mg/dL (8.5-10.1); Chloride, Blood 108 mmol/L (98-108); Creatinine, Blood 1.03 mg/dL (0.40-1.00); Glomerular Filtration Rate 52 (60-); Glucose, Blood 107 mg/dL (70-99); International Normalized Ratio 2.57; Phosphorus, Blood 2.7 mg/dL (2.5-4.9); Potassium, Blood 3.4 mmol/L (3.5-5.5); Prothrombin Time Results 25.4 Sec (9.7-11.5); Sodium, Blood 139 mmol/L (136-145)
--- NOTE | 2021-09-27 05:41 | NUR ---
SHIFT SUMMARY Pt A/Ox4, VSS. LLE splint/MAYTE C/D/I. 3 person max assist to bed side commode. Generalized weakness noted in all extremities. Pt on 3L NC while awake and home cpap with 2L trickled in while sleeping. Cont O2 monitoring. Dyspnea with exertion. Stress incontinence, wearing brief. No pain throughout the night. Rested comfortably. WCTM
--- NOTE | 2021-09-27 13:48 | NUR ---
RECEIVED CALL FROM LAB RE: BLOOD CULTURE RESULT OF GM + COCCI IN CLUSTER, DR. ESPINOSA WHO HAPPENED TO BE AT THE NURSES STATION WAS NOTIFIED RIGHT AWAY, DR. ESPINOSA SAID " OKAY ", NO FURTHER ORDER RECEIVED.
--- NOTE | 2021-09-27 16:10 | NUR ---
SHIFT SUMMARY: PATIENT REFUSED TO EAT BREAKFAST TODAY, AOX3, SUTURES TO DISTAL SIDE OF RIGHT KNEE DRY& INTACT, COVERED WITH TEGADERM, SUTURES AT RIGHT LOWER LEG COVERED WITH GAUZE, LEFT KNEE IMMOBILIZED COVERED WITH MAYTE WRAP, SCATTERED BRUISING NOTED TO RIGHT LEG,COMPLAINTS OF LOWER ABDOMINAL PAIN COVERED WITH PAIN MEDICINE. TRANSFERRED TO RECLINER & BEDSIDE COMMODE USING A WHEELCHAIR & 2 PERSON MAX ASSIST,AOX3,SEEN BY DR. ESPINOSA & NOTIFIED ABOUT THE BLOOD CULTURE RESULT OF GRAM + COCCI IN CLUSTERS, SAID " OKAY ", NO FURHTER ORDER RECEIVED.PT. SEEN BY OT & PT TODAY. NO NEW UNUSUALITIES NOTED. WILL CONTINUE TO MONITOR.
[2021-09-28 05:40] LABS: Hematocrit 25.1 % (33.0-51.0); Hemoglobin 7.8 g/dL (11.5-16.0); Mean Corpuscular HGB 28.4 pg (26.0-34.0); Mean Corpuscular HGB Conc 31.1 g/dL (31.5-36.5); Mean Corpuscular Volume 91 fL (80-100); Platelet Count 335 K/mm3 (150-400); RDW Standard Deviation 49.7 fL (35.1-46.3); Red Blood Cell Count 2.75 M/mm3 (3.80-5.20); White Blood Cell Count 7.96 K/mm3 (4.00-11.30)
[2021-09-28 06:01] LABS: International Normalized Ratio 3.41
[2021-09-28 06:22] LABS: BAND PERCENT MAN 2 % (0-8); BASOPHILS ABSOLUTE MAN 0.15 K/mm3 (0.00-0.23); BASOPHILS PERCENT MAN 2 % (0-2); LYMPHOCYTES ABSOLUTE MAN 0.55 K/mm3 (0.84-5.20); LYMPHOCYTES PERCENT MAN 7 % (21-46); MONOCYTES PERCENT MAN 0 % (4-13); NEUTROPHILS ABSOLUTE MAN 7.08 K/mm3 (1.96-9.15); SEG NEUTROPHILS PERCENT MAN 87 % (41-73); TOTAL CELLS COUNTED 100
[2021-09-28 06:23] LABS: EOSINOPHILS ABSOLUTE MAN 0.15 K/mm3 (0.00-0.68); EOSINOPHILS PERCENT MAN 2 % (0-6)
--- NOTE | 2021-09-28 13:30 | NUR ---
0800 NOTED POWERGLIDE MIDLINE TO LEFT UPPER ARM, PER RN REPORT THIS MORNING, THIS IV ACCESS WAS PLACED LAST NIGHT. IV ACCESS INFUSING CURRENTLY WITH DRESSING DRY & INTACT, NO S/S OF INFECTION NOTED.
--- NOTE | 2021-09-28 17:51 | NUR ---
SHIFT SUMMARY: PATIENT IN INCREASING PAIN EVERY AFTER PT/OT ACTIVITIES, COVERED WITH PAIN MEDICATIONS. WOUNDS/INCISIONS TAKEN CARE DOF TODAY PER WOUND CARE ORDER, NYSTATIN CREAM ORDERED THIS MORNING RELATED TO REDNESS TO GROIN AREA, PT. VERBALIZED OF FEELING BETTER IN REGARDS TO GROIN IRRITATION, LEFT LOWER LEG IMMOBILITY MAINTAINED, PT. TRANSFERS TO RECLINER COMMODE USING A WALKER WITH RIGHT LEG WEIGHTBEARING. DAUGHTER CAME THIS LATE AFTERNOON. OUTER SIDE OF RIGHT KNEE WOUND AREA APPEARS TO BE MORE RED, [facility], DR. ESPINOSA NOTIFIED BY LAURA STEWART REGARDING WOUND & SUTURES THAT HAD BEEN ON SINCE PT'S ADMISSION AT THE ER. NO OTHER UNUSUALITIES NOTED.
--- NOTE | 2021-09-29 03:37 | NUR ---
SHIFT SUMMARY NO ACUTE CHANGES OVERNIGHT. PT UP IN THE RECLINER AT THE BEGINNING OF SHIFT. USED BSC, TRANSFER WITH FWW AND GB. PT BACK TO BED TONIGHT. PT REPORTS PAIN MOSTLY ON HER BACK. ENC MORE MOBILITY TO EXPERIENCE LESS STIFFNESS. PLACED KPAD ON HER BACK FOR COMFORT. PT NWB ON RLE. NO CHANGE WITH HER WOUNDS. TOLERATING PO INTAKE DENIES N/V. VSS. DENIES CP AND SOB. PAIN MANAGED WITH DILAUDID IV AND PO. CALL LIGHT WITHIN REACH. WILL PROVIDE REPORT TO ONCOMING NURSE.
[2021-09-29 06:03] LABS: International Normalized Ratio 2.77; Prothrombin Time Results 27.2 Sec (9.7-11.5)
--- NOTE | 2021-09-29 14:13 | NUR ---
0800 PATIENT NOTED WITH LEFT UPPER ARM POWERGLIDE MIDLINE CATHETER, DRESSING DRY & INTACT.
--- NOTE | 2021-09-29 16:52 | NUR ---
SHIFT SUMMARY: PATIENT DID NOT USE CPAP LAST NIGHT,NO PROBLEMS, MAINTAINED O2 SAT OF ON THE 90'S - 95 %, IV ACCESS TO LEFT UPPER ARM ( POWERGLIDE MIDLINE), TRANSFERRED WELL TO BEDSIDE COMMODE & RECLINER USING A WALKER WITH LEFT LEG NON WT.BEARING,ATE WELL FOR BREAKFAST BUT ONLY 20% FOR LUNCH, COMPLAINTS OF PAIN TO UPPER BACK & LOWER ABDOMEN MEDICATED, VISITED BY DAUGHTER. PLAN OF DISCHARGING TO DAUGHTER'S HOME. WILL CONTINUE TO MONITOR.
[2021-09-30 04:05] LABS: Hematocrit 24.3 % (33.0-51.0); Hemoglobin 7.5 g/dL (11.5-16.0); Mean Corpuscular HGB 28.4 pg (26.0-34.0); Mean Corpuscular HGB Conc 30.9 g/dL (31.5-36.5); Mean Corpuscular Volume 92 fL (80-100); Mean Platelet Volume 8.7 fL (9.1-12.4); Platelet Count 341 K/mm3 (150-400); RDW Standard Deviation 50.5 fL (35.1-46.3); Red Blood Cell Count 2.64 M/mm3 (3.80-5.20); White Blood Cell Count 7.48 K/mm3 (4.00-11.30)
[2021-09-30 04:18] LABS: International Normalized Ratio 3.31; Prothrombin Time Results 32.1 Sec (9.7-11.5)
--- NOTE | 2021-09-30 06:09 | NUR ---
SHIFT SUMMARY NO ACUTE CHANGES OVERNIGHT. VSS. AOX4. PT ABLE TO STAND AND PIVOT FROM BSC TO BED WITH 2 PERSON ASSIST. TOLEARTING IT WELL WITH NWB ON LLE. PT TOLERATING PO INTAKE, DENIES NAUSEA AND VOMITING. LLE IS ON SPLINT AND MAYTE WRAP. UNABLE TO ACCESS PEDAL PULSE BUT CAP REFILL WNL. PT REPORTS PAIN AFTER TRANSFERING BSC TO BED. PAIN MANAGED WITH 1MG DILAUDID, PO. PT WEARS CPAP AT NIGHT. URINARY INCONTINENT WITH ATTENDS IN PLACED. VOIDING. CALL LIGHT WITHIN REACH. WILL PROVIDE REPORT TO ONCOMING NURSE.
--- NOTE | 2021-09-30 16:52 | NUR ---
PT. DISCHARGED AT THIS TIME. BELONGINGS PACKED AND MEDS SENT WITH PATIENT. DAUGHTER HERE WITH PT TODAY FOR TEACHING TO HELP CARE FOR PATIENT AT HOME. HOME HEALTH TO FOLLOW UP ON Monday. DC INSTRUCTIONS EXPLAINED AND COPY SENT WITH PATIENT. POWER GLIDE REMOVED LUE, CANNULA TIP INTACT. PATIENT STATES PAIN IS UNDER CONTROL. W/C TO EXIT, TRANSPORT VAN TO TAKE PT. HOME WITH DAUGHTER.
== END 2021-09-30 16:50 | disposition home health service (06) | DRG 493 ==
LOC: ER 11:50 → SURS 14:59 → ERHOLD 14:59 → SURS 16:53
PROVIDERS: Emergency Medicine; Family Medicine; Hospitalist; Internal Medicine; Nurse Practitioner Acute Care; Pharmacist; Podiatrist Foot & Ankle Surgery; ADMIT Surgery
PROC: 0QSK0ZZ Reposition Left Fibula, Open Approach (ICD-10-PCS; 2021-09-14)
PROC: 0QSH0ZZ Reposition Left Tibia, Open Approach (ICD-10-PCS; 2021-09-14)
PROC: 2W3MX1Z Immobilization of Left Lower Extremity using Splint (ICD-10-PCS; 2021-09-14)
PROC: 0HQLXZZ Repair Left Lower Leg Skin, External Approach (ICD-10-PCS; 2021-09-14)
PROC: 0HQKXZZ Repair Right Lower Leg Skin, External Approach (ICD-10-PCS; 2021-09-14)
PROC: 0QSH04Z Reposition Left Tibia with Internal Fixation Device, Open Approach (ICD-10-PCS; 2021-09-17)
PROC: 0QSK04Z Reposition Left Fibula with Internal Fixation Device, Open Approach (ICD-10-PCS; principal; 2021-09-17 14:00)
DX: S82.852B Displaced trimalleolar fracture of left lower leg, initial encounter for open fracture type I or II (principal); S22.43XA Multiple fractures of ribs, bilateral, initial encounter for closed fracture; N39.0 Urinary tract infection, site not specified; N17.9 Acute kidney failure, unspecified; D62 Acute posthemorrhagic anemia; I47.2 Ventricular tachycardia; N82.3 Fistula of vagina to large intestine; E27.40 Unspecified adrenocortical insufficiency; Z20.822 Contact with and (suspected) exposure to COVID-19; V89.2XXA Person injured in unspecified motor-vehicle accident, traffic, initial encounter; Y92.410 Unspecified street and highway as the place of occurrence of the external cause; I12.9 Hypertensive chronic kidney disease with stage 1 through stage 4 chronic kidney disease, or unspecified chronic kidney disease; Z86.711 Personal history of pulmonary embolism; E87.6 Hypokalemia; E83.39 Other disorders of phosphorus metabolism; N18.30 Chronic kidney disease, stage 3 unspecified; E03.9 Hypothyroidism, unspecified; Z88.8 Allergy status to other drugs, medicaments and biological substances; Z88.2 Allergy status to sulfonamides; Z88.5 Allergy status to narcotic agent; Z79.899 Other long term (current) drug therapy; Z79.01 Long term (current) use of anticoagulants; Z90.710 Acquired absence of both cervix and uterus; K59.00 Constipation, unspecified; B96.20 Unspecified Escherichia coli [E. coli] as the cause of diseases classified elsewhere; S30.1XXA Contusion of abdominal wall, initial encounter; D72.828 Other elevated white blood cell count; Z53.29 Procedure and treatment not carried out because of patient's decision for other reasons
CPT/HCPCS: 0241U; 12004; 27818; 36415; 36430; 51702; 70450; 71045; 71260; 72125; 73100; 73562-LT; 73562-RT; 73590; 73600; 73700; 74177; 80048; 80053; 80069; 81001; 83690; 83735; 84145; 84702; 85007; 85014; 85018; 85025; 85027; 85049; 85520; 85610; 85730; 86850; 86900; 86901; 86923; 87040; 87077; 87086; 87186; 94760; 94762; 96365; 96375; 97110; 97161; 97166; 97530; 97535; 99152; 99285-25; A9270; C1713; C1769; G0480; J0360; J0690; J0696; J1100; J1170; J1644; J1956; J2405; J2704; J3010; J3480; J7030; J7060; J7120; P9016; Q9967